=== PATIENT | male | born 1950 | race Hispanic/Latino ===

== ENCOUNTER → 2023-09-28 | Outpatient (CLI) | payer MEDICARE ==
[2023-09-28] MEDS: REGADENOSON 0.4 MG/5 ML PF SYG IVP ONE (13:09)
== END | disposition home or self-care (01) ==
LOC: SHCH 08:34
PROVIDERS: ATTEND Internal Medicine Cardiovascular Disease
DX: I25.10 Atherosclerotic heart disease of native coronary artery without angina pectoris (principal)
CPT/HCPCS: 78452; 93017; J2785; A9500 ×2